=== PATIENT | female | born 1970 | race Caucasian/White ===

== ENCOUNTER 2024-04-26 09:46 | Inpatient (IN) ==
[2024-04-26 10:12] VITALS: BMI 31.7
--- NOTE | 2024-04-26 11:21 | DR.EXTPAIN ---
HPI Time seen Time Seen by Provider: 04/26/24 11:21 PCP Primary Care Physician: Manny Jamil Complaint/Symptoms Chief Complaint:: Patient states she was suppsoed to come last from Dr Cat secondary a possible DVT. She states she has pain right leg with pain and edema to right heel. COVID-19 Coronavirus risk:travel/contact w/high risk person: No Has patient experienced Coronavirus symptoms: No Source History Provided: Patient Mode of arrival Mode of Arrival: Ambulatory Timing Onset of Chief Complaint: 04/26/24 PMH PMH Past Medical History: Yes Past Medical History: Coronary Artery Disease, Diabetes and Hypertension Past Medical History Comment: Stents secondary CAD, fibromyalgia, Neuropathy Past Surgical History: Yes Surgical History: Angioplasty/Stents, Cholecystectomy and Hysterectomy Past Surgical History Comment: left kidney removed due to Renal cell carcinoma Family History History of Family Medical Conditions: Yes Family Medical History: Coronary Artery Disease Social History Does patient currently use any type of tobacco product: No Have you used tobacco products in the last 12 months: No Type of Tobacco Use: None Does any household member use tobacco: No Alcohol Use: None Do you use any recreational Drugs:: No Lives With: Spouse Lives Where: Home Travel Risk Coronavirus risk:travel/contact w/high risk person: No Has patient experienced Coronavirus symptoms: No Infectious screening In the last 2 months have you had wt loss of >10#?: NO Have you had fever, night sweats or hemotysis?: No Have you traveled outside the country in the last 6 months?: No Isolation: Standard PE Vital Signs Vitals: Vital Signs Temperature 98.2 F Pulse Rate 100 Respiratory Rate 16 Blood Pressure 168/104 O2 Sat by Pulse Oximetry 97 Opioid Opioid Risk Tool Age (Dennis box if 16-45): No History of Preadolescent Sexual Abuse: No Total: 0 Total Score Risk Category: Low Risk Copyright: Enrike SHAH predicting aberrant behaviors Discharge Plan Discharge Plan Patient Disposition: 01 HOME, SELF-CARE Condition: Stable Orders to Discharge Patient Discharge Orders: Transfer (Routine); Ordered 04/26/24 Ordered By: VILMA SANCHEZ
[2024-04-26] MEDS: LR 1,000 ML IV 1,000 ML IV SCH (12:05)
[2024-04-26] MEDS ORDERED: PERCOCET TAB 5/325 MG ONE ×2 (12:42→12:43)
[2024-04-26] MEDS: PERCOCET TAB 5/325 MG PO ONE (12:48)
[2024-04-26 13:47] LABS: BASOPHILS # (AUTO) 0.1 X10^3/uL (0.0-0.1); BASOPHILS % (AUTO) 1.1 % (0.2-1.0); EOSINOPHILS # (AUTO) 0.2 x10^3/uL (0.0-0.2); EOSINOPHILS % (AUTO) 2.8 % (0.9-2.9); HEMATOCRIT 35.3 % (36.0-47.0); HEMOGLOBIN 11.4 g/dL (12.0-16.0); LYMPHOCYTES % (AUTO) 25.6 % (21.0-51.0); MEAN CORPUSCULAR HEMOGLOBIN 28.2 pg (27.0-34.0); MEAN CORPUSCULAR HGB CONC 32.5 g/dL (33.0-35.0); MEAN PLATELET VOLUME 8.1 fL (7.4-11.0); MONOCYTES # (AUTO) 0.3 x10^3/uL (0.3-0.8); MONOCYTES % (AUTO) 4.4 % (0.0-13.0); NEUTROPHILS # (AUTO) 5.3 x10^3/uL (2.2-4.8); NEUTROPHILS % (AUTO) 66.1 % (42.0-75.0); PLATELET COUNT 381 X10^3/uL (150.0-450.0); RED BLOOD COUNT 4.05 X10^6/uL (3.5-5.4); RED CELL DISTRIBUTION WIDTH 15.1 % (11.6-16.5)
[2024-04-26 13:57] LABS: ALANINE AMINOTRANSFERASE 20 Units/L (12-78); ALBUMIN 3.9 g/dL (3.4-5.0); ALKALINE PHOSPHATASE 152 Units/L (46-116); ASPARTATE AMINO TRANSFERASE 18 Units/L (15-37); BLOOD UREA NITROGEN 17 mg/dL (7-18); CALCIUM 9.8 mg/dL (8.5-10.1); CARBON DIOXIDE 26.4 mmol/L (21-32); CHLORIDE 96 mmol/L (98-107); COR NA(FOR HYPERGLY) 138 mmol/L (136-145); CREATININE 0.88 mg/dL (0.55-1.02); GLUCOSE 227 mg/dL (65-99); POTASSIUM 4.3 mmol/L (3.5-5.1); SODIUM 135 mmol/L (136-145); TOTAL PROTEIN 8.4 g/dL (6.4-8.2); eGFR NON BLACK RACES > 60 (>60)
--- NOTE | 2024-04-26 14:07 | DR.H&P ---
H&P History & Physical for Day of: H&P Date: 04/26/24 Chief Complaint Chief Complaint: rest pain left foot History of Present Illness History of Present Illness: 54 yo female with histroy of diabetes, [place], multiple coronary stents , history of TIAs with small ulcer left heel, presents with increasing rest pain of the left leg . Past Medical History Past Medical History: Coronary Artery Disease, CVA (TIAs , on aspirin and Xarelto), Diabetes, Dyslipidemia, GERD and Hypertension Additional Medical History: hx left renal cell cancer s/p left open nephectomy, and subsequent hernia repair x 2 in this location. Past Surgical History Surgical History: Angioplasty/Stents, Cholecystectomy and Hysterectomy Family History Family Medical History: Coronary Artery Disease Social History Does patient currently use any type of tobacco product: No Have you used tobacco products in the last 12 months: No Type of Tobacco Use: None Does any household member use tobacco: No Alcohol Use: None Medications Home Medications: Home Medications Medication Instructions Recorded Confirmed Type aspirin 81 mg tablet 81 mg PO QDAY 04/26/24 04/26/24 History atorvastatin 80 mg tablet 80 mg PO QDAY 04/26/24 04/26/24 History bupropion HCl 100 mg tablet 100 mg PO BID 04/26/24 04/26/24 History doxepin 10 mg capsule 30 mg PO QHS 04/26/24 04/26/24 History duloxetine 60 mg capsule,delayed 60 mg PO BID 04/26/24 04/26/24 History release ezetimibe 10 mg tablet 10 mg PO QDAY 04/26/24 04/26/24 History gabapentin 400 mg capsule 400 mg PO TID 04/26/24 04/26/24 History insulin glargine 100 unit/mL 90 unit subcut QHS 04/26/24 04/26/24 History subcutaneous solution (Lantus U-100 Insulin) insulin lispro 100 unit/mL 45 unit subcut TID 04/26/24 04/26/24 History subcutaneous solution (Humalog U-100 Insulin) levothyroxine 25 mcg tablet 25 mcg PO QDAY 04/26/24 04/26/24 History (Synthroid) metoprolol succinate 100 mg 100 mg PO BID 04/26/24 04/26/24 History tablet,extended release 24 hr oxycodone-acetaminophen 10 mg-325 1 tab PO Q6H PRN 04/26/24 04/26/24 History mg tablet (Percocet) pantoprazole 40 mg tablet,delayed 40 mg PO QDAY 04/26/24 04/26/24 History release (Protonix) quetiapine 300 mg tablet (Seroquel) 600 mg PO QHS 04/26/24 04/26/24 History ticagrelor 60 mg tablet (Brilinta) 50 mg PO BID 04/26/24 04/26/24 History tizanidine 4 mg capsule 4 mg PO TID PRN 04/26/24 04/26/24 History Allergies Allergies Allergy/AdvReac Type Severity Reaction Status Date / Time hydromorphone [From Dilaudid] Allergy Verified 04/26/24 11:02 Labs 04/26/24 12:12 Labs: Laboratory WBC 8.0 X10^3/uL (3.6-10.0) 04/26/24 12:12 RBC 4.05 X10^6/uL (3.5-5.4) 04/26/24 12:12 Hgb 11.4 g/dL (12.0-16.0) L 04/26/24 12:12 Hct 35.3 % (36.0-47.0) L 04/26/24 12:12 MCV 87.0 fL (80.0-100.0) 04/26/24 12:12 MCH 28.2 pg (27.0-34.0) 04/26/24 12:12 MCHC 32.5 g/dL (33.0-35.0) L 04/26/24 12:12 RDW 15.1 % (11.6-16.5) 04/26/24 12:12 Plt Count 381 X10^3/uL (150.0-450.0) 04/26/24 12:12 MPV 8.1 fL (7.4-11.0) 04/26/24 12:12 Neut % (Auto) 66.1 % (42.0-75.0) 04/26/24 12:12 Lymph % (Auto) 25.6 % (21.0-51.0) 04/26/24 12:12 Page % (Auto) 4.4 % (0.0-13.0) 04/26/24 12:12 Eos % (Auto) 2.8 % (0.9-2.9) 04/26/24 12:12 Baso % (Auto) 1.1 % (0.2-1.0) H 04/26/24 12:12 Neut # (Auto) 5.3 x10^3/uL (2.2-4.8) H 04/26/24 12:12 Lymph # (Auto) 2.0 X10^3/uL (1.3-2.9) 04/26/24 12:12 Page # (Auto) 0.3 x10^3/uL (0.3-0.8) 04/26/24 12:12 Eos # (Auto) 0.2 x10^3/uL (0.0-0.2) 04/26/24 12:12 Baso # (Auto) 0.1 X10^3/uL (0.0-0.1) 04/26/24 12:12 Absolute Nucleated RBC 0.2 /100WBC 04/26/24 12:12 Review of Systems Constitutional: See HPI Eyes: No Symptoms Reported ENT: No Symptoms Reported Respiratory: No Symptoms Reported Cardiovascular: See HPI Genitourinary: See HPI Musculoskeletal: No Symptoms Reported Skin: See HPI Neurological: See HPI Physical Exam Vital Signs: Vital Signs Temperature 98.2 F Pulse Rate 100 Respiratory Rate 16 Respiratory Rate 16 Blood Pressure 168/104 O2 Sat by Pulse Oximetry 97 Oriented: Normal, Time, Person and Place Eyes: Normal Ear: Normal Nose: Normal Throat: Normal Respiratory: Clear Throughout Cardiovascular: Normal and Other (right foot warm, let foot cool, no palpable pulses either ankle ) : Normal and Other (hx of left nepherctomy) Palpation: Normal Tenderness: Normal Skin: Wound (2cm x 0.4 cm x 0.2 cm chronic diabetic ulcer to the left heel) Musculoskeletal: Normal Psychiatric: Normal Mood Description: Calm Affect: Normal Speech Pattern: Clear and Appropriate Assessment/Plan (1) Atherosclerosis of [place] arteries of extremities with rest pain, left leg: Status: Acute Plan: CTA and address (2) Atherosclerosis of [place] arteries of extremities with rest pain, right leg: Status: Acute Plan: CTA and address (3) Chronic ischemic heart disease, unspecified: Status: Acute Plan: home meds (4) Type 2 diabetes mellitus without complications: Status: Acute Plan: sliding scale insulin (5) Personal history of TIA (transient ischemic attack): Status: Acute Plan: home meds (6) Personal history of other malignant neoplasm of kidney: Status: Acute Plan: observe (7) Incisional hernia: Status: Acute Plan: observe (8) Hyperlipidemia: Status: Acute Plan: home meds
[2024-04-26] MEDS: OMNIPAQUE 350 mg/mL 100 mL BTL 100 ML ONE (14:16)
[2024-04-26] MEDS ORDERED: NS 500 ML IV 500 ML IV ONE (14:16)
[2024-04-26] MEDS: OMNIPAQUE 350 mg/mL 50 mL BTL 50 ML ONE (14:16)
--- NOTE | 2024-04-26 16:10 | CT ---
EXAM:CTA AORTA WITH RUNOFFHISTORY:left leg edema and pain;COMPARISON:NoneTECHNIQUE:CT angiogram of the abdomen and pelvis bilateral lower extremity runoff obtained without and with IV contrast. 3D MIPS images obtained and reviewed. Dose reduction techniques including Automated Exposure Control (AEC) and adjustment of mA and kV were utilized.FINDINGS:The visualized portions of the lower thorax demonstrate no acute process. Small hiatal hernia.No acute osseous abnormality. Likely injection granuloma in the anterior abdominal soft tissues.No evidence of abdominal aortic aneurysm. The celiac artery, SMA, right renal artery, and SILVINA appear patent with scattered atherosclerotic calcifications. Duplicated right renal arteries. The bilateral common, internal, and external iliac arteries are patent with multifocal atherosclerotic disease.The right common femoral, superficial femoral, and deep femoral arteries are patent with multifocal atherosclerotic disease. The right popliteal artery is patent. Right anterior and posterior tibial arteries appear patent to the right foot though degree of atherosclerotic calcifications limits evaluation. Occlusion of the right peroneal artery.The left common femoral, superficial femoral, and deep femoral arteries are patent with multifocal atherosclerotic disease. Left popliteal artery is patent with mild atherosclerotic stenosis. Degree of calcifications in the more distal left lower extremity arteries limits evaluation. Occlusion of the left peroneal artery. The left anterior tibial and posterior tibial arteries appear patent with multifocal high-grade stenosis.The liver, gallbladder, spleen, pancreas, bilateral adrenal glands, and right kidney demonstrate no acute process. Prior left nephrectomy. Prior cholecystectomy.No evidence of bowel obstruction. The appendix is unremarkable. Moderate colonic fecal burden.Gas in the bladder lumen which may be due to recent catheterization. The bladder is otherwise unremarkable. Prior hysterectomy. No free air or fluid. IVC filter.IMPRESSION:Apparent two-vessel runoff to the right and left foot. The right and left peroneal arteries appear occluded.THIS IS AN ELECTRONICALLY VERIFIED FINAL REPORT04/26/2024 4:01 PM - Electronically signed by Ponce White MD
[2024-04-26] MEDS: NORMODYNE INJ 20 MG VIAL IVP ONE (16:48)
[2024-04-26] MEDS: NovoLIN R (or HumuLIN R) SUBCUT PRN (16:48)
[2024-04-26] MEDS: PERCOCET TAB 5/325 MG PO PRN (16:48)
[2024-04-26] MEDS: VASOTEC INJ 2.5 MG VIAL IVP PRN (18:52)
[2024-04-26] MEDS: TYLENOL 325 MG TAB PO PRN (20:17)
[2024-04-26] MEDS: SNACK - Diabetic Appropriate PO SCH (21:00)
[2024-04-26] MEDS ORDERED: ATIVAN INJ 2 MG VIAL IVP SCH (21:15)
[2024-04-26] MEDS ORDERED: VASOTEC INJ 2.5 MG VIAL IVP PRN (21:15)
[2024-04-26] MEDS: VASOTEC INJ 2.5 MG VIAL IVP ONE (21:24)
[2024-04-26] MEDS: ATIVAN INJ 2 MG VIAL IVP PRN (22:09)
[2024-04-26] MEDS: ZANAFLEX PO PRN (22:25)
[2024-04-26] MEDS: NEURONTIN CAP 400 MG PO SCH (22:26)
[2024-04-26] MEDS: CYMBALTA PO SCH (22:27)
[2024-04-26] MEDS: SINEquan PO SCH (22:27)
[2024-04-26] MEDS: WELLBUTRIN SR 150 MG (BID) PO SCH (22:56)
[2024-04-27] MEDS ORDERED: HIBICLENS WASH EXT ONE (01:54)
[2024-04-27 04:59] LABS: BASOPHILS # (AUTO) 0.1 X10^3/uL (0.0-0.1); BASOPHILS % (AUTO) 1.4 % (0.2-1.0); EOSINOPHILS # (AUTO) 0.2 x10^3/uL (0.0-0.2); EOSINOPHILS % (AUTO) 2.6 % (0.9-2.9); HEMATOCRIT 32.9 % (36.0-47.0); HEMOGLOBIN 10.7 g/dL (12.0-16.0); LYMPHOCYTES % (AUTO) 39.6 % (21.0-51.0); MEAN CORPUSCULAR HEMOGLOBIN 28.3 pg (27.0-34.0); MEAN CORPUSCULAR HGB CONC 32.6 g/dL (33.0-35.0); MEAN CORPUSCULAR VOLUME 86.8 fL (80.0-100.0); MONOCYTES # (AUTO) 0.3 x10^3/uL (0.3-0.8); MONOCYTES % (AUTO) 4.3 % (0.0-13.0); NEUTROPHILS # (AUTO) 3.9 x10^3/uL (2.2-4.8); NEUTROPHILS % (AUTO) 52.1 % (42.0-75.0); PLATELET COUNT 359 X10^3/uL (150.0-450.0); RED BLOOD COUNT 3.79 X10^6/uL (3.5-5.4); WHITE BLOOD COUNT 7.5 X10^3/uL (3.6-10.0)
[2024-04-27 05:15] LABS: ALANINE AMINOTRANSFERASE 18 Units/L (12-78); ALBUMIN 3.5 g/dL (3.4-5.0); ALKALINE PHOSPHATASE 137 Units/L (46-116); ASPARTATE AMINO TRANSFERASE 17 Units/L (15-37); BLOOD UREA NITROGEN 15 mg/dL (7-18); CALCIUM 9.4 mg/dL (8.5-10.1); CARBON DIOXIDE 27.3 mmol/L (21-32); CHLORIDE 98 mmol/L (98-107); COR NA(FOR HYPERGLY) 138 mmol/L (136-145); CREATININE 0.74 mg/dL (0.55-1.02); GLUCOSE 209 mg/dL (65-99); SODIUM 135 mmol/L (136-145); TOTAL PROTEIN 7.4 g/dL (6.4-8.2); eGFR NON BLACK RACES > 60 (>60)
[2024-04-27] MEDS: HIBICLENS WASH EXT ONE (05:52)
[2024-04-27] MEDS: SYNTHROID 25 mcg TAB PO SCH (06:19)
[2024-04-27] MEDS ORDERED: SYNTHROID 75 mcg TAB PO SCH (06:30)
[2024-04-27] MEDS: ASPIRIN EC 81 MG PO SCH (08:10)
[2024-04-27] MEDS: LIPITOR TAB 80 MG PO SCH (08:14)
[2024-04-27] MEDS: TOPROL XL PO SCH (08:24)
--- NOTE | 2024-04-27 11:29 | NOTE.SOAP ---
Soap Note Note for Day of Date of Exam: 04/27/24 Subjective Data Subjective Data: Patient with diabetes and non-healing wound to the left heel and rest pain to the left leg Objective Data Temperature: 98.7 F Pulse Rate: 107 Respiratory Rate: 24 Blood Pressure: 152/87 O2 Sat by Pulse Oximetry: 97 Objective Data: Rest pain left leg , CTA shows arteries left leg with occluded left peroneal artery , and severe high grade stenosis both the AT and PT arteries of the left leg Assessment Assessment: critical ischemia left leg Plan Plan: Aortogram, arteriogram left leg , possible atherectomy, possible angioplasty , possible stenting arteries of the left trifurcation. Risks and benefits discussed with the patient.
--- NOTE | 2024-04-27 13:04 | EKG ---
Test Reason : surgical clearance Blood Pressure : */* mmHG Vent. Rate : 88 BPM Atrial Rate : 88 BPM P-R Int : 110 ms QRS Dur : 94 ms QT Int : 396 ms P-R-T Axes : 26 10 -41 degrees QTc Int : 479 ms Sinus rhythm with short NE Minimal voltage criteria for LVH, may be normal variant ( Jesus product ) Septal infarct , age undetermined Lateral infarct , age undetermined Abnormal ECG No previous ECGs available Confirmed by Ayaz Combs MD ([id number]) on 04/27/2024 2:22:03 PM Referred By: Confirmed By: Ayaz Combs MD
[2024-04-27] MEDS: NS 1,000 ML IV 1,000 ML ONE ×2 (14:20→15:56)
--- NOTE | 2024-04-27 15:12 | DR.CONSULT ---
CONSULT Consultation for Day of: Date: 04/27/24 Chief Complaint Chief Complaint: Left foot wound Allergies Allergies Allergy/AdvReac Type Severity Reaction Status Date / Time hydromorphone [From Dilaudid] Allergy Verified 04/26/24 11:02 nalbuphine [From Nubain] Allergy Verified 04/26/24 15:18 History of Present Illness History of Present Illness: 54-year-old Diabetic female who was previously seen by Dr. Pelletier where she had a small fissure to the medial heel of the left leg. She was instructed to continue local wound care and offloading. She had ADEOLA studies which showed 3 vessel runoff than subsequently saw Dr. Castellanos for consultation who admitted her for rest pain and further workup and CTA with intervention today. Podiatry was consulted for evaluation. Patient today is complaining of lateral ankle pain that she describes as pins and needles and directly points just behind the lateral malleolus. She does report a recent injury approximately 2 weeks ago where she tripped trying to get into her bed. Past Medical History Past Medical History: Coronary Artery Disease, CVA (TIAs , on aspirin and Xar elto), Diabetes, Dyslipidemia, GERD and Hypertension Additional Medical History: hx left renal cell cancer s/p left open nephectomy, and subsequent hernia repair x 2 in this location. Past Surgical History Surgical History: Angioplasty/Stents, Cholecystectomy and Hysterectomy Family History Family Medical History: Coronary Artery Disease Social History Does patient currently use any type of tobacco product: No Have you used tobacco products in the last 12 months: No Type of Tobacco Use: None Does any household member use tobacco: No Alcohol Use: None Drug Use: None Medications Home Medications: hydromorphone [From Dilaudid] Allergy (Verified 04/26/24 11:02) nalbuphine [From Nubain] Allergy (Verified 04/26/24 15:18) CONTINUE taking the following medications aspirin 81 mg tablet 81 mg PO QDAY 04/26/24 [History] atorvastatin 80 mg tablet 80 mg PO QDAY 04/26/24 [History] bupropion HCl 100 mg tablet 100 mg PO BID 04/26/24 [History] doxepin 10 mg capsule 30 mg PO QHS 04/26/24 [History] duloxetine 60 mg capsule,delayed release 60 mg PO BID 04/26/24 [History] ezetimibe 10 mg tablet 10 mg PO QDAY 04/26/24 [History] gabapentin 400 mg capsule 400 mg PO TID 04/26/24 [History] insulin glargine 100 unit/mL subcutaneous solution (Lantus U-100 Insulin) 90 unit subcut QHS 04/26/24 [History] insulin lispro 100 unit/mL subcutaneous solution (Humalog U-100 Insulin) 45 unit subcut TID 04/26/24 [History] levothyroxine 25 mcg tablet (Synthroid) 25 mcg PO QDAY 04/26/24 [History] metoprolol succinate 100 mg tablet,extended release 24 hr 100 mg PO BID 04/26/24 [History] oxycodone-acetaminophen 10 mg-325 mg tablet (Percocet) 1 tab PO Q6H PRN 04/26/24 [History] pantoprazole 40 mg tablet,delayed release (Protonix) 40 mg PO QDAY 04/26/24 [History] quetiapine 300 mg tablet (Seroquel) 600 mg PO QHS 04/26/24 [History] ticagrelor 60 mg tablet (Brilinta) 50 mg PO BID 04/26/24 [History] tizanidine 4 mg capsule 4 mg PO TID PRN 04/26/24 [History] Physical Exam Vital Signs: Vital Signs Temperature 98.7 F Temperature 98.7 F Pulse Rate 93 Pulse Rate 107 Pulse Rate 101 Pulse Rate 107 Pulse Rate 102 Respiratory Rate 20 Respiratory Rate 24 Respiratory Rate 21 Respiratory Rate 26 Respiratory Rate 22 Respiratory Rate 24 Respiratory Rate 24 Blood Pressure 177/90 Blood Pressure 152/87 Blood Pressure 174/97 Blood Pressure 152/87 O2 Sat by Pulse Oximetry 99 O2 Sat by Pulse Oximetry 97 O2 Sat by Pulse Oximetry 97 O2 Sat by Pulse Oximetry 97 O2 Sat by Pulse Oximetry 98 Oriented: Normal Tenderness: Other (Tender along the posterior aspect of the left lateral malleolus, positive tinel. No pain over achilles insertion or midsubstance. Able to perform circumduction of the left ankle with no subuluxation of peroneals present. Sensation is intact to light touch.) Skin: Decreased Turgur and Other (Abrasion to sinus tarsi area of left foot after tripping trying to get into her bed. Fissure noted to medial heel, see description below. Xerotic skin changes present.) Musculoskeletal: Foot (Left: DP and PT pulses briskly palpable. CFT WNL to all digits. Small 0.3 cm fissure to medial heel that is almost healed. The depth is 0.2 cm. Does not probe to bone. No drainage. Does not appear to be infected. ) and Deformity (No underlying deformity. ) Plan (1) Atherosclerosis of [place] arteries of extremities with rest pain, left leg: Status: Acute Narrative Support Text: Dr. Castellanos following and performing intervention today. (2) Atherosclerosis of [place] arteries of extremities with rest pain, right leg: Status: Acute (3) Chronic ischemic heart disease, unspecified: Status: Acute (4) Type 2 diabetes mellitus without complications: Status: Acute (5) Personal history of TIA (transient ischemic attack): Status: Acute (6) Personal history of other malignant neoplasm of kidney: Status: Acute (7) Incisional hernia: Status: Acute (8) Hyperlipidemia: Status: Acute (9) Non-pressure chronic ulcer of left ankle limited to breakdown of skin: Status: Acute Plan: - WBAT to LLE. - Patient can perform ammonium lactate and urea cream to fissure daily and around rest of foot to help hydrate skin. - No acute signs of infection to the left heel. - No surgical intervention to left foot. - Her neuritic symptoms and lateral ankle pain can be further worked up on an outpatient basis may warrant MRI vs NCV studies.Could be related to recent injury to left foot or due to gait changes secondary to fissure on medial heel. - Patient okay for discharge from Podiatry perspective once Dr. Castellanos is finished with his interventions.
[2024-04-27] MEDS: NS 100 ML IV 100 ML ONE (15:16)
[2024-04-27] MEDS ORDERED: PRECEDEX INJ VIAL ONE (15:16)
[2024-04-27] MEDS: DIPRIVAN VIAL 20 ML ONE ×3 (15:16→16:25)
[2024-04-27] MEDS ORDERED: KETAMINE HCL ONE (15:16)
[2024-04-27] MEDS ORDERED: XYLOCAINE 2 % (PLAIN) ONE (15:16)
[2024-04-27] MEDS: FENTANYL VIAL INJ 100 mcg ONE ×2 (15:16→15:58)
[2024-04-27] MEDS: ZOFRAN INJ 4 MG VIAL ONE (15:16)
[2024-04-27] MEDS: ANCEF VIAL 1 GRAM ONE (15:16)
[2024-04-27] MEDS: OFIRMEV IV 1000 MG VIAL 1,000 MG/100 ML VIAL IV ONE (15:16)
[2024-04-27] MEDS: VERSED ONE (15:16)
[2024-04-27] MEDS: PEPCID 20 MG VIAL ONE (15:16)
[2024-04-27] MEDS: DECADRON INJ ONE (15:16)
[2024-04-27] MEDS: REGLAN INJ 10 MG VIAL ONE (15:33)
[2024-04-27] MEDS: VISIPAQUE 50 ML ONE (15:43)
[2024-04-27] MEDS: VISIPAQUE 100 ML ONE (15:43)
[2024-04-27] MEDS: MARCAINE 0.5% ONE (15:43)
[2024-04-27] MEDS: HEPARIN SODIUM IN D5W 75,000 UNITS/1,500 ML BAG ONE (15:43)
[2024-04-27] MEDS: HEPARIN SODIUM INJ 5000 UNITS ONE (15:45)
--- NOTE | 2024-04-27 16:42 | OR.IMMED ---
IMMEDIATE POST-OP NOTE Immediate Post-Op Note Date of surgery/procedure: 04/27/24 Pre-Op Diagnosis: Critical ischemia left leg, rest pain, non-healing wound to the left heel Post-Op Diagnosis: same Procedure: diagnostic aortogram, diagnostic arteriogram left leg, atherectomy and angioplasty left anterior tibial artery distal occlusion, angioplasty entire severely diseased left posterior tibial artery Description of Procedure: dictated Surgeon/Sld Educational Aide: Jasmin Findings: all proximal vessels patent, completely occluded left peroneal artery, severe disease and occluded left posterior tibial artery, complete occlusion of the distal left anterior tibial artery Estimated Blood Loss: < 100 cc Complications: none Progress Notes: to floor, continue aspirin, begin Xarelto 2.5 mg po BID, probably discharge home tomorrow.
[2024-04-27] MEDS: WELLBUTRIN IR (PLAIN) PO SCH (17:48)
[2024-04-27] MEDS: ZETIA TAB 10 MG PO SCH (17:48)
[2024-04-27] MEDS: PROTONIX TAB 40 MG PO SCH (17:48)
[2024-04-27] MEDS: XARELTO PO SCH (21:40)
[2024-04-28 05:13] LABS: BLOOD UREA NITROGEN 17 mg/dL (7-18); CALCIUM 9.1 mg/dL (8.5-10.1); CARBON DIOXIDE 28.1 mmol/L (21-32); CHLORIDE 98 mmol/L (98-107); COR NA(FOR HYPERGLY) 139 mmol/L (136-145); CREATININE 0.86 mg/dL (0.55-1.02); GLUCOSE 206 mg/dL (65-99); POTASSIUM 3.8 mmol/L (3.5-5.1); SODIUM 136 mmol/L (136-145); eGFR NON BLACK RACES > 60 (>60)
[2024-04-28] MEDS ORDERED: CONSULT PHARMACY - POTASSIUM & MAGNESIUM XX SCH (07:00)
[2024-04-28] MEDS: K-DUR TAB 20 MEQ PO SCH (10:38)
[2024-04-28] MEDS: MAG-OX TAB PO SCH (10:38)
--- NOTE | 2024-04-28 11:13 | W.DIS.FURT ---
Summary of Discharge Discharge Summary of Date Date of Exam: 04/28/24 Admission Date Date of Admission: 04/26/24 Admission Diagnosis Hospital Course: 54 year old Female with history diabetes who presented to the emergency room with rest pain of the left leg and a non-healing wound to the left heel .She was admitted and underwent CT angiogram showing all proximal arteries to be patent with severe multilevel disease of both the left posterior tibial and anterior tibial arteries and occluded left peroneal artery all of which markedly decreased flow to the left foot. She was admitted and taken to the operating Suite on April 27 where she underwent atherectomy and angioplasty of the left anterior tibial artery and angioplasty of the entire left posterior tibial artery re-establishing distal flow. Post procedure she has good doppler signals at the ankle now. Rest pain is resolved. She will be discharged today on her usual medications with the addition of Xarelto 2.5 milligrams BID and aspirin 81 milligrams daily. She will follow up with me in 2 weeks. Vital Signs: Vital Signs (72 hours) 04/27/24 11:29 04/26/24 09:47 04/26/24 12:48 Temperature 98.7 F 98.2 F Pulse Rate 107 H 100 H Respiratory Rate 24 16 16 Blood Pressure 152/87 168/104 O2 Sat by Pulse Oximetry 97 97 Oxygen Delivery Method Room Air 04/26/24 14:00 04/26/24 15:00 04/26/24 15:02 Temperature 99.2 F Pulse Rate 91 H 84 Respiratory Rate 22 25 H Blood Pressure 173/88 O2 Sat by Pulse Oximetry 97 96 Oxygen Delivery Method 04/26/24 16:00 04/26/24 16:48 04/26/24 13:33 Temperature 98.6 F Pulse Rate 86 Respiratory Rate 24 24 Blood Pressure O2 Sat by Pulse Oximetry 98 Oxygen Delivery Method Room Air 04/26/24 16:15 04/26/24 16:25 04/26/24 18:17 Temperature Pulse Rate Respiratory Rate Blood Pressure 186/92 180/92 189/104 O2 Sat by Pulse Oximetry Oxygen Delivery Method 04/26/24 18:17 04/26/24 18:20 04/26/24 17:48 Temperature Pulse Rate 98 H Respiratory Rate 24 24 Blood Pressure 184/106 O2 Sat by Pulse Oximetry 96 Oxygen Delivery Method 04/26/24 20:17 04/26/24 19:00 04/26/24 19:00 Temperature Pulse Rate Respiratory Rate 24 Blood Pressure 162/92 O2 Sat by Pulse Oximetry Oxygen Delivery Method Room Air 04/26/24 19:00 04/26/24 19:31 04/26/24 19:31 Temperature Pulse Rate 92 H 90 Respiratory Rate 28 H 30 H Blood Pressure 143/100 O2 Sat by Pulse Oximetry 97 97 Oxygen Delivery Method 04/26/24 19:38 04/26/24 20:00 04/26/24 20:01 Temperature 98.5 F Pulse Rate 92 H Respiratory Rate 26 H Blood Pressure 194/109 193/96 O2 Sat by Pulse Oximetry 95 Oxygen Delivery Method 04/26/24 20:37 04/26/24 20:37 04/26/24 21:00 Temperature Pulse Rate 88 Respiratory Rate 22 Blood Pressure 182/92 197/107 O2 Sat by Pulse Oximetry 98 Oxygen Delivery Method 04/26/24 21:00 04/26/24 21:30 04/26/24 21:30 Temperature Pulse Rate 90 87 Respiratory Rate 26 H 17 Blood Pressure 204/106 O2 Sat by Pulse Oximetry 98 96 Oxygen Delivery Method 04/26/24 21:39 04/26/24 21:39 04/26/24 22:00 Temperature Pulse Rate 97 H 92 H Respiratory Rate 30 H 34 H Blood Pressure 204/103 O2 Sat by Pulse Oximetry 98 98 Oxygen Delivery Method 04/26/24 22:00 04/26/24 22:31 04/26/24 22:31 Temperature Pulse Rate 93 H Respiratory Rate 44 H Blood Pressure 214/113 214/105 O2 Sat by Pulse Oximetry 97 Oxygen Delivery Method 04/26/24 21:17 04/27/24 00:00 04/27/24 00:00 Temperature 98.7 F Pulse Rate 93 H Respiratory Rate 24 30 H Blood Pressure 149/79 O2 Sat by Pulse Oximetry 94 L Oxygen Delivery Method 04/27/24 01:46 04/27/24 01:00 04/27/24 01:00 Temperature Pulse Rate 91 H Respiratory Rate 30 H 27 H Blood Pressure 172/98 O2 Sat by Pulse Oximetry 96 Oxygen Delivery Method 04/27/24 02:07 04/27/24 02:08 04/27/24 03:00 Temperature Pulse Rate 83 Respiratory Rate 23 Blood Pressure 129/69 158/81 O2 Sat by Pulse Oximetry 98 Oxygen Delivery Method 04/27/24 03:00 04/27/24 04:00 04/27/24 04:00 Temperature Pulse Rate 81 84 Respiratory Rate 22 19 Blood Pressure 158/80 O2 Sat by Pulse Oximetry 95 95 Oxygen Delivery Method 04/27/24 02:46 04/27/24 05:00 04/27/24 05:00 Temperature 98.4 F Pulse Rate 90 Respiratory Rate 16 15 Blood Pressure 175/85 O2 Sat by Pulse Oximetry 96 Oxygen Delivery Method 04/27/24 06:25 04/27/24 08:25 04/27/24 09:38 Temperature Pulse Rate 109 H Respiratory Rate 32 H 22 21 Blood Pressure 190/111 O2 Sat by Pulse Oximetry 95 Oxygen Delivery Method 04/27/24 07:00 04/27/24 07:00 04/27/24 08:00 Temperature 98.7 F Pulse Rate 102 H 107 H Respiratory Rate 24 24 Blood Pressure 152/87 O2 Sat by Pulse Oximetry 98 97 Oxygen Delivery Method Room Air 04/27/24 09:00 04/27/24 14:23 04/27/24 10:00 Temperature Pulse Rate 101 H 93 H 96 H Respiratory Rate 26 H 20 25 H Blood Pressure 174/97 177/90 O2 Sat by Pulse Oximetry 97 99 99 Oxygen Delivery Method Room Air 04/27/24 11:00 04/27/24 12:00 04/27/24 13:00 Temperature 97.4 F L Pulse Rate 96 H 81 84 Respiratory Rate 24 24 28 H Blood Pressure 176/90 156/80 O2 Sat by Pulse Oximetry 97 97 100 Oxygen Delivery Method 04/27/24 16:45 04/27/24 17:00 04/27/24 17:15 Temperature 99.4 F 99.4 F 98.8 F Pulse Rate 84 81 83 Respiratory Rate 14 18 18 Blood Pressure 178/93 164/80 163/92 O2 Sat by Pulse Oximetry 95 95 97 Oxygen Delivery Method Room Air Room Air Room Air 04/27/24 18:17 04/27/24 09:25 04/27/24 10:25 Temperature Pulse Rate Respiratory Rate 24 22 21 Blood Pressure O2 Sat by Pulse Oximetry Oxygen Delivery Method 04/27/24 10:38 04/27/24 17:30 04/27/24 17:45 Temperature Pulse Rate 84 83 Respiratory Rate 21 20 18 Blood Pressure 175/89 178/96 O2 Sat by Pulse Oximetry 96 97 Oxygen Delivery Method Room Air Room Air 04/27/24 19:00 04/27/24 19:06 04/27/24 19:45 Temperature Pulse Rate 97 H 84 Respiratory Rate 35 H 18 Blood Pressure 162/81 157/88 O2 Sat by Pulse Oximetry 97 98 Oxygen Delivery Method Room Air 04/27/24 19:17 04/27/24 20:45 04/27/24 20:00 Temperature Pulse Rate 83 Respiratory Rate 22 15 Blood Pressure 130/86 137/72 O2 Sat by Pulse Oximetry 98 Oxygen Delivery Method Room Air 04/27/24 20:00 04/27/24 21:41 04/27/24 18:45 Temperature 98.8 F 98.3 F Pulse Rate 84 97 H Respiratory Rate 31 H 15 20 Blood Pressure 162/81 O2 Sat by Pulse Oximetry 96 98 Oxygen Delivery Method Room Air 04/27/24 21:45 04/27/24 19:00 04/27/24 22:00 Temperature 98.3 F Pulse Rate 85 86 Respiratory Rate 23 27 H Blood Pressure 174/96 O2 Sat by Pulse Oximetry 97 97 Oxygen Delivery Method Room Air Room Air 04/27/24 22:00 04/27/24 23:00 04/27/24 23:00 Temperature Pulse Rate 80 Respiratory Rate 24 Blood Pressure 174/96 152/70 O2 Sat by Pulse Oximetry 96 Oxygen Delivery Method 04/27/24 22:41 04/28/24 00:00 04/28/24 00:00 Temperature 98.4 F Pulse Rate 78 Respiratory Rate 13 17 Blood Pressure 153/82 O2 Sat by Pulse Oximetry 95 Oxygen Delivery Method 04/28/24 01:00 04/28/24 01:01 04/28/24 02:00 Temperature Pulse Rate 76 79 Respiratory Rate 11 L 20 Blood Pressure 130/65 O2 Sat by Pulse Oximetry 96 96 Oxygen Delivery Method 04/28/24 02:01 04/28/24 03:00 04/28/24 03:00 Temperature Pulse Rate 83 Respiratory Rate 15 Blood Pressure 133/56 136/64 O2 Sat by Pulse Oximetry 95 Oxygen Delivery Method 04/28/24 04:00 04/28/24 04:00 04/28/24 05:00 Temperature 97.6 F Pulse Rate 81 Respiratory Rate 13 Blood Pressure 146/65 150/67 O2 Sat by Pulse Oximetry 95 Oxygen Delivery Method 04/28/24 05:00 04/28/24 05:50 04/28/24 06:00 Temperature Pulse Rate 88 Respiratory Rate 19 19 Blood Pressure 171/95 O2 Sat by Pulse Oximetry 96 Oxygen Delivery Method 04/28/24 06:00 04/28/24 07:00 04/28/24 07:00 Temperature Pulse Rate 88 97 H Respiratory Rate 18 14 Blood Pressure O2 Sat by Pulse Oximetry 95 96 Oxygen Delivery Method Room Air Labs: Laboratory Last Values WBC 7.5 X10^3/uL (3.6-10.0) 04/27/24 04:10 RBC 3.79 X10^6/uL (3.5-5.4) 04/27/24 04:10 Hgb 10.7 g/dL (12.0-16.0) L 04/27/24 04:10 Hct 32.9 % (36.0-47.0) L 04/27/24 04:10 MCV 86.8 fL (80.0-100.0) 04/27/24 04:10 MCH 28.3 pg (27.0-34.0) 04/27/24 04:10 MCHC 32.6 g/dL (33.0-35.0) L 04/27/24 04:10 RDW 15.0 % (11.6-16.5) 04/27/24 04:10 Plt Count 359 X10^3/uL (150.0-450.0) 04/27/24 04:10 MPV 8.0 fL (7.4-11.0) 04/27/24 04:10 Neut % (Auto) 52.1 % (42.0-75.0) 04/27/24 04:10 Lymph % (Auto) 39.6 % (21.0-51.0) 04/27/24 04:10 [place] % (Auto) 4.3 % (0.0-13.0) 04/27/24 04:10 Eos % (Auto) 2.6 % (0.9-2.9) 04/27/24 04:10 Baso % (Auto) 1.4 % (0.2-1.0) H 04/27/24 04:10 Neut # (Auto) 3.9 x10^3/uL (2.2-4.8) 04/27/24 04:10 Lymph # (Auto) 3.0 X10^3/uL (1.3-2.9) H 04/27/24 04:10 [place] # (Auto) 0.3 x10^3/uL (0.3-0.8) 04/27/24 04:10 Eos # (Auto) 0.2 x10^3/uL (0.0-0.2) 04/27/24 04:10 Baso # (Auto) 0.1 X10^3/uL (0.0-0.1) 04/27/24 04:10 Absolute Nucleated RBC 0.0 /100WBC 04/27/24 04:10 Sodium 136 mmol/L (136-145) 04/28/24 04:16 Corrected Sodium 139 mmol/L (136-145) 04/28/24 04:16 Potassium 3.8 mmol/L (3.5-5.1) 04/28/24 04:16 Chloride 98 mmol/L (98-107) 04/28/24 04:16 Carbon Dioxide 28.1 mmol/L (21-32) 04/28/24 04:16 BUN 17 mg/dL (7-18) 04/28/24 04:16 Creatinine 0.86 mg/dL (0.55-1.02) 04/28/24 04:16 Est GFR (MDRD) Af Amer > 60 (>60) 04/28/24 04:16 Est GFR (MDRD) Non-Af > 60 (>60) 04/28/24 04:16 Glucose 206 mg/dL (65-99) H 04/28/24 04:16 Calcium 9.1 mg/dL (8.5-10.1) 04/28/24 04:16 Corrected Calcium TNP 04/27/24 04:10 Magnesium 1.7 mg/dL (2.0-2.9) L 04/28/24 04:14 Total Bilirubin 0.20 mg/dL (0.2-1.0) 04/27/24 04:10 AST 17 Units/L (15-37) 04/27/24 04:10 ALT 18 Units/L (12-78) 04/27/24 04:10 Alkaline Phosphatase 137 Units/L (46-116) H 04/27/24 04:10 Total Protein 7.4 g/dL (6.4-8.2) 04/27/24 04:10 Albumin 3.5 g/dL (3.4-5.0) 04/27/24 04:10 Globulin 3.9 g/dL (2.5-4.5) 04/27/24 04:10 Albumin/Globulin Ratio 0.9 Ratio (1.1-2.1) L 04/27/24 04:10 Reason For Visit: ARTERIAL OBSTRUCTION LLR Discharge Diagnosis All Active Problems (Updated 04/27/24 @ 15:08 by Otto Bass) Non-pressure chronic ulcer of left ankle limited to breakdown of skin (Acute) Hyperlipidemia (Acute) Incisional hernia (Acute) Personal history of other malignant neoplasm of kidney (Acute) Personal history of TIA (transient ischemic attack) (Acute) Type 2 diabetes mellitus without complications (Acute) Chronic ischemic heart disease, unspecified (Acute) Atherosclerosis of [place] arteries of extremities with rest pain, right leg (Acute) Atherosclerosis of [place] arteries of extremities with rest pain, left leg (Acute) Plan of Treatment: Continue with present treatment and follow up plan. Pt is to keep follow up appointment as instructed and take medications as ordered. Discharge Medications Discharge Medications: hydromorphone [From Dilaudid] Allergy (Verified 04/26/24 11:02) nalbuphine [From Nubain] Allergy (Verified 04/26/24 15:18) CONTINUE taking the following medications aspirin 81 mg tablet 81 mg PO QDAY 04/26/24 [History] atorvastatin 80 mg tablet 80 mg PO QDAY 04/26/24 [History] bupropion HCl 100 mg tablet 100 mg PO BID 04/26/24 [History] doxepin 10 mg capsule 30 mg PO QHS 04/26/24 [History] duloxetine 60 mg capsule,delayed release 60 mg PO BID 04/26/24 [History] ezetimibe 10 mg tablet 10 mg PO QDAY 04/26/24 [History] gabapentin 400 mg capsule 400 mg PO TID 04/26/24 [History] insulin glargine 100 unit/mL subcutaneous solution (Lantus U-100 Insulin) 90 unit subcut QHS 04/26/24 [History] insulin lispro 100 unit/mL subcutaneous solution (Humalog U-100 Insulin) 45 unit subcut TID 04/26/24 [History] levothyroxine 25 mcg tablet (Synthroid) 25 mcg PO QDAY 04/26/24 [History] metoprolol succinate 100 mg tablet,extended release 24 hr 100 mg PO BID 04/26/24 [History] oxycodone-acetaminophen 10 mg-325 mg tablet (Percocet) 1 tab PO Q6H PRN 04/26/24 [History] pantoprazole 40 mg tablet,delayed release (Protonix) 40 mg PO QDAY 04/26/24 [History] quetiapine 300 mg tablet (Seroquel) 600 mg PO QHS 04/26/24 [History] ticagrelor 60 mg tablet (Brilinta) 50 mg PO BID 04/26/24 [History] tizanidine 4 mg capsule 4 mg PO TID PRN 04/26/24 [History] New Prescriptions rivaroxaban 2.5 mg tablet (Xarelto) 2.5 mg PO BID #60 tabs 04/28/24 [Rx] Discharge Disposition Assessment: No acute distress noted. Discharge Plan Discharge Plan Hospital Course: 54 year old Female with history diabetes who presented to the emergency room w ith rest pain of the left leg and a non-healing wound to the left heel .She was admitted and underwent CT angiogram showing all proximal arteries to be patent with severe multilevel disease of both the left posterior tibial and anterior tibial arteries and occluded left peroneal artery all of which markedly decreased flow to the left foot. She was admitted and taken to the operating Suite on April 27 where she underwent atherectomy and angioplasty of the left anterior tibial artery and angioplasty of the entire left posterior tibial artery re-establishing distal flow. Post procedure she has good doppler signals at the ankle now. Rest pain is resolved. She will be discharged today on her usual medications with the addition of Xarelto 2.5 milligrams BID and aspirin 81 milligrams daily. She will follow up with me in 2 weeks. Patient Disposition: 01 HOME, SELF-CARE Condition: Stable Health Concerns: Post Hospitalization: new medications and changes needed to prevent readmission or further decline. Pt educated and given instructions on all concerns. Care Plan Goals: Problem: Pain/Alteration in Comfort Goal: Improve/ Resolve Pain; Achieve Pain Tolerance Instructions: Take pain medications as prescribed. Contact your primary care provider if your pain is unrelieved or worsens. Follow up with primary care provider as directed. Plan of Treatment: Continue with present treatment and follow up plan. Pt is to keep follow up a ppointment as instructed and take medications as ordered. Assessment: No acute distress noted. Prescription drug monitoring program results: PDMP reviewed with concerns identified Prescriptions: New Xarelto 2.5 mg Tablet 2.5 mg PO BID Qty: 60 0RF Continued doxepin 10 mg Capsule 30 mg PO QHS oxycodone-acetaminophen [Percocet] 10-325 mg Tablet 1 tab PO Q6H PRN aspirin 81 mg Tablet 81 mg PO QDAY insulin lispro [Humalog U-100 Insulin] 100 unit/mL Solution 45 unit subcut TID Brilinta 60 mg Tablet 50 mg PO BID insulin glargine [Lantus U-100 Insulin] 100 unit/mL Solution 90 unit SUBCUT QHS quetiapine [Seroquel] 300 mg Tablet 600 mg PO QHS metoprolol succinate 100 mg Tablet Extended Release 24 Hr 100 mg PO BID levothyroxine [Synthroid] 25 mcg Tablet 25 mcg PO QDAY pantoprazole [Protonix] 40 mg Tablet,Delayed Release (Dr/Ec) 40 mg PO QDAY tizanidine 4 mg Capsule 4 mg PO TID PRN atorvastatin 80 mg Tablet 80 mg PO QDAY gabapentin 400 mg Capsule 400 mg PO TID bupropion HCl 100 mg Tablet 100 mg PO BID ezetimibe 10 mg Tablet 10 mg PO QDAY duloxetine 60 mg Capsule,Delayed Release(Dr/Ec) 60 mg PO BID Follow ups/Referrals Follow ups/Referrals: Boubacar Castellanos [STAFF PHYSICIAN] - 05/12/24 2:30 pm Instructions Instructions: Bleeding Precautions When on Anticoagulant Therapy, Adult, Pain Relief Before and After Surgery, Endovascular Therapy for Peripheral Vascular Disease, Care After, Angiogram, Care After, [id number] Stand Alone Forms: Post Hospital Follow Up Care
[2024-04-28 11:14] VITALS: TEMP 98.2
[2024-04-28 11:15] VITALS: BP 149/72; PULSE 92; RESP 23; O2SAT 97
--- NOTE | 2024-05-02 02:12 | DR.OPNOTE ---
OP NOTE Pre-Op Diagnosis: critical ischemia left leg with non- healing left heel wound Post-Op Diagnosis: same Procedure Date Date Of Procedure: 04/27/24 Procedure: PROCEDURE: DIAGNOSTIC AORTOGRAM, DIAGNOSTIC ARTERIOGRAM LEFT LEG, ATHERECTOMY AND ANGIOPLASTY LEFT ANTERIOR TIBIAL ARTERY, ANGIOPLASTY LEFT POSTERIOR TIBIAL ARTERY NARRATIVE : The patient was taken to the operative suite and placed in the supine position. The right groin and entire left leg were prepped and draped in sterile fashion. The patient was given intravenous sedation supervised by myself. Time out for the procedure obtained. Ultrasound used to identify the right femoral artery and the skin overlying it infiltrated with 0.5% Marcaine. Ultrasound then used to guide puncture of the right femoral artery and a 0.012 inch guide wire was placed. Incision made over the guide wire at the skin edge with a # 11 knife blade and a micro sheath placed over the guide wire into the right femoral artery The small guidewire exchanged for a 0.035 inch Advantage glide wire and the micro sheath exchanged for a 5 Fr vascular sheath. Patient given 5000 units of intravenous heparin. Omni catheter was placed over the guide wire into the aorta and diagnostic aortogram carried out with the power injector showing patent aorta and iliac arteries . Omni catheter was used to steer the guide wire down the left common iliac artery to the distal left external iliac artery . Omni catheter was exchanged for a Concord catheter and sequential arteriograms carried out of the left lower extremity showing patent left superficial femoral and popliteal arteries , completely occluded left peroneal artery, complete occlusion of the distal left anterior tibial artery, severely diseased left posterior tibial artetry with complete occlusion .The 5 Fr sheath in the right groin then exchanged for a 7 Fr [employer] destination sheath which was parked inthe popliteal artery.Concord catheter and the guide wire were used to traverse the arteries of the left leg ultimately ending in the left anterior tibial artery across the distal occlusion into the left ankle. This was selective catheterization. 0.035 inch wire removed and exchanged for a 0.014 inch wire. Over this wire we placed the [place] atherectomy device and performed attherectomy of left anterior tibial artery . At this point we performed angioplasty balloon dilatation of the entire left anterior tibial artery . The wire was removed from the anterior artery and using the Concord catheter and the 0.014 inch wire were able to traverse the entire diseased posterior tibial artery into the ankle .The approximal mid portion of this artery balloon dilated with a 2 millimeter by [address] [employer] [place] angioplasty balloon and the distal part of the posterior tibial artery was dialed with a 1.5 millimetre by 40 millimetre Sebastian balloon. At the completion of this a follow up arteriogram showed excellent flow through both arteries into the foot . All wires and devices removed. The 7 Fr sheath was pulled back into the aorta and a 0.035 inch wire placed. The destination sheath exchanged for an Angioseal device used to close the puncture of the right femoral artery. Dressing applied to the right groin. The patient taken to the flooor in good condition. Type of Anesthesia: Local (0.5% Marcaine ) Anesthesia Comment: plus MAC Findings: complete occlusion distal left anterior tibial artery, severely diseased left posterior tibial artery with complete occlusion Type of Fluids Used:: Lactated Ringers Total Amount of Fluid Infused:: 800cc Urine output: 200 EBL: 100cc Complications:: none Needle/Sponge Count:: correct Disposition/Condition: Pt. tolerated procedure without difficulty. Taken to floor in stable condition.
== END 2024-04-28 10:40 | disposition home or self-care (01) | DRG 271 ==
LOC: ER 09:46 → ICU 12:59
PROVIDERS: ADMIT Surgery; ATTEND Surgery